=== PATIENT | female | born 1965 | race Caucasian/White ===

== ENCOUNTER 2023-04-23 09:46 | Outpatient (AMB) | payer MEDICARE, MEDICAID, SELFPAY ==
--- NOTE | 2023-04-23 10:05 | MHC.OFFVIS ---
Intake Vital Signs 04/23/23 10:06 Height 4 ft 10 in Weight 115 lb BMI 24.0 Intake Visit Reasons: OV-B/L shoulder MRI results Intake Note: Rae is a 57 year old right hand dominant female who presents today as a new patient to reestablish care with Dr. Bloom. The patient did undergo right shoulder arthroscopic surgery on 10/02/2022. She reports mild intermittent discomfort in her right shoulder. She denies any fevers or chills. Today she is most concerned with progressively worsening left shoulder pain. Her left shoulder pain has gotten worse over the last few years in spite of continued non operative treatments. She has tried Tylenol and anti-inflammatory medicines which gave her minimal relief. She has had multiple injections over the last few years which gave her only mild relief. The patient has done physical therapy for 12 weeks over the last 6 months which aggravated her pain. The patient states she has difficulty lifting her left hand above shoulder height. Allergies acetaminophen [Vicodin] Allergy (Unknown, Verified 11/07/19 00:00) rash cephalexin [Keflex] Allergy (Unknown, Verified 11/07/19 00:00) itching fentanyl Allergy (Unknown, Verified 11/07/19 00:00) rash hydrocodone [Vicodin] Allergy (Unknown, Verified 11/07/19 00:00) rash hydromorphone [Dilaudid] Allergy (Unknown, Verified 11/07/19 00:00) rash hydroxyzine [Vistaril] Allergy (Unknown, Verified 11/07/19 00:00) uremic pruritis oxycodone Allergy (Unknown, Verified 11/07/19 00:00) rash,itchy,hives bee stings Allergy (Unknown, Uncoded 11/07/19 00:00) rash/swelling Benadryl Allergy (Unknown, Uncoded 11/07/19 00:00) rash codeine Allergy (Unknown, Uncoded 11/07/19 00:00) rash,itchy,hive gluten Allergy (Unknown, Uncoded 11/07/19 00:00) Lactose Allergy (Unknown, Uncoded 11/07/19 00:00) GI latex Allergy (Unknown, Uncoded 11/07/19 00:00) rash,itchiness morphine Allergy (Unknown, Uncoded 11/07/19 00:00) itchy shellfish Allergy (Unknown, Uncoded 11/07/19 00:00) rash,itchiness ZyrTEC Allergy (Unknown, Uncoded 11/07/19 00:00) itchy Medication List - Last Reconciled 04/23/23 by Jimmie Bloom MD acetaminophen 1,000 mg PO Q8H PRN citalopram 40 mg PO DAILY citalopram 20 mg PO DAILY clonazepam 0.5 mg PO TID PRN epinephrine IM ibuprofen 600 mg PO Q8H PRN ondansetron HCl 4 mg PO DAILY PRN quetiapine 100 mg PO DAILY solifenacin 5 mg PO DAILY PFSH Medical History (Updated 04/23/23 @ 11:02 by Jimmie Bloom MD) ADHD Anxiety Bipolar depression Cervico-occipital neuralgia GERD (gastroesophageal reflux disease) High cholesterol Insomnia Pituitary adenoma PTSD (post-traumatic stress disorder) Surgical History (Updated 04/23/23 @ 10:30 by THEE Esquivel) History of shoulder surgery Hx of carpal tunnel repair Social History (Updated 04/23/23 @ 10:09 by THEE Esquivel) Patient Tobacco Use Status: Never used Tobacco Current occupational status: unemployed Physical Exam Vital Signs: BMI result Body Mass Index 24.0 Const Other: Well-nourished well-developed very friendly female awake alert and oriented x3 in no acute distress Extrem Other: Bilateral upper extremity examination shows good capillary refill, no skin lesions noted, normal sensation light touch Left shoulder examination shows decreased range of motion when compared to her right shoulder, 5/5 strength with supraspinatus testing, positive impingement signs, tenderness over her acromioclavicular joint, no instability Results Reviewed Results Reviewed: MRI of the patient's left shoulder show severe acromioclavicular joint narrowing, type 2 acromion, signal change within the supraspinatus tendon most likely due Assessment & Plan Assessment & Plan (1) Impingement syndrome of left shoulder: Code(s): M75.42 - Impingement syndrome of left shoulder Plan: Ms. Yarbrough presents with progressively worsening left shoulder pain and stiffness due to impingement syndrome, acromioclavicular joint arthritis and adhesive capsulitis. I had a lengthy discussion with the patient regarding the treatment options. At this point she has failed continued nonoperative treatments. The risks and benefits of left shoulder surgery were discussed at length with the patient. The patient wishes to proceed with surgery. Surgery will most likely involve left shoulder diagnostic arthroscopy with distal clavicle excision, acromioplasty, anterior capsule release with manipulation under anesthesia. The patient will contact my office to pick a surgery date. I will see her back 1 week prior to her surgery to answer any final questions that she might have. Feel free to call me at any time should questions regarding her orthopedic management arise. I spent 24 minutes in reviewing the patient's records and imaging studies, seeing the patient and documenting in the medical record. Coding Level of Care Code Est Pt Level 2 (65067) Diagnoses Impingement syndrome of left shoulder M75.42
[2023-04-23 10:06] VITALS: BMI 24.0
== END 2023-04-23 10:45 | disposition home or self-care (01) ==
PROVIDERS: PCP Pediatrics; Visit Provider Orthopaedic Surgery
DX: M75.42 Impingement syndrome of left shoulder (principal)
CPT/HCPCS: 99212

== ENCOUNTER → 2023-04-23 09:46 | Outpatient (BNVA) | payer MEDICARE, MEDICAID, SELFPAY | PROVIDERS: Visit Provider Orthopaedic Surgery | DX: M75.42 Impingement syndrome of left shoulder (principal) | CPT/HCPCS: 99212 ==

== ENCOUNTER 2023-08-12 08:23 | Outpatient (AMB) | payer MEDICARE, MEDICAID, SELFPAY ==
--- NOTE | 2023-08-12 08:27 | A.OFFVIS_ITS ---
Intake Vital Signs 08/12/23 08:29 Height 4 ft 10 in Weight 115 lb BMI 24.0 Intake Visit Reasons: Pre-Op LT SHLD 08/28/23DR Intake Note: Rae is a 57 year old right hand dominant female who presents today as a new patient to reestablish care with Dr. Bloom. The patient did undergo right shoulder arthroscopic surgery on 10/02/2022. She reports mild intermittent discomfort in her right shoulder. She denies any fevers or chills. Today she is most concerned with progressively worsening left shoulder pain. Her left shoulder pain has gotten worse over the last few years in spite of continued non operative treatments. She has tried Tylenol and anti-inflammatory medicines which gave her minimal relief. She has had multiple injections over the last few years which gave her only mild relief. The patient has done physical therapy for 12 weeks over the last 6 months which aggravated her pain. The patient states she has difficulty lifting her left hand above shoulder height. Pain management agreement reviewed and signed. Allergies acetaminophen [Vicodin] Allergy (Unknown, Verified 08/12/23 08:29) rash cephalexin [Keflex] Allergy (Unknown, Verified 08/12/23 08:) itching fentanyl Allergy (Unknown, Verified 08/12/23 08:) rash hydrocodone [Vicodin] Allergy (Unknown, Verified 08/12/23:) rash hydromorphone [Dilaudid] Allergy (Unknown, Verified 08/12/23 08:29) rash hydroxyzine [Vistaril] Allergy (Unknown, Verified 08/12/23 08:) uremic pruritis oxycodone Allergy (Unknown, Verified 08/12/23 08:) rash,itchy,hives bee stings Allergy (Unknown, Uncoded 08/12/23 08:29) rash/swelling Benadryl Allergy (Unknown, Uncoded 08/12/23 08:29) rash codeine Allergy (Unknown, Uncoded 08/12/23:) rash,itchy,hive gluten Allergy (Unknown, Uncoded 08/12/23 08:29) Unknown Lactose Allergy (Unknown, Uncoded 08/12/23 08:29) GI latex Allergy (Unknown, Uncoded 08/12/23 08:29) rash,itchiness morphine Allergy (Unknown, Uncoded 08/12/23 08:29) itchy shellfish Allergy (Unknown, Uncoded 08/12/23 08:29) rash,itchiness ZyrTEC Allergy (Unknown, Uncoded 08/12/23 08:29) itchy Medication List - Last Reconciled 08/12/23 by Jimmie Bloom MD citalopram 40 mg PO DAILY citalopram 20 mg PO DAILY clonazepam 0.5 mg PO TID PRN epinephrine IM ibuprofen 600 mg PO Q6H PRN ondansetron HCl 4 mg PO DAILY PRN quetiapine 100 mg PO DAILY solifenacin 5 mg PO DAILY PFSH Medical History (Updated 04/23/23 @ 11:02 by Jimmie Bloom MD) High cholesterol Cervico-occipital neuralgia Pituitary adenoma GERD (gastroesophageal reflux disease) PTSD (post-traumatic stress disorder) Anxiety ADHD Insomnia Bipolar depression Surgical History Hx of carpal tunnel repair History of shoulder surgery Social History Patient Tobacco Use Status: Never used Tobacco Current occupational status: unemployed Physical Exam Vital Signs: BMI result Body Mass Index 24.0 Const Other: Well-nourished well-developed very friendly female awake alert and oriented x3 in no acute distress Lungs - clear to auscultation bilaterally with symmetric expansion Cardiovascular exam - regular rate and rhythm Abdominal exam - soft nontender nondistended Extrem Other: Bilateral upper extremity examination shows good capillary refill, no skin lesions noted, normal sensation light touch The left shoulder examination shows decreased active and passive range of motion when compared to her right shoulder, 4+ out of 5 strength with supraspinatus testing, positive impingement signs, tenderness over her acromioclavicular joint, no instability Results Reviewed Results Reviewed: X-rays of the patient's left shoulder show severe acromioclavicular joint narrowing, a type 2 acromion, no acute bony abnormalities If the MRI of the patient's left shoulder shows severe acromioclavicular joint narrowing, a type 2 acromion, signal change within the supraspinatus tendon most likely due to adhesive capsulitis Assessment & Plan Assessment & Plan (1) Impingement syndrome of left shoulder: Code(s): M75.42 - Impingement syndrome of left shoulder Plan Ms. Yarbrough the presents with progressively worsening left shoulder pain and stiffness due to impingement syndrome, acromioclavicular joint arthritis and adhesive capsulitis. I had a lengthy discussion with the patient regarding the treatment options. At this point she has failed continued non operative treatments. The risks and benefits of left shoulder surgery were discussed at length with the patient. The patient wishes to proceed with surgery. Surgery will most likely involve left shoulder diagnostic arthroscopy with distal cl avicle excision, acromioplasty, capsular release and manipulation under anesthesia. The patient was given a prescription for ibuprofen at her preoperative appointment. She does not wish to take any narcotics following her surgery. I will see her back 2-3 weeks following her surgery for her 1st postoperative appointment. She will follow-up as instructed. Feel free to call me at any time should questions regarding her orthopedic management arise. I spent 22 minutes in reviewing the patient's records and imaging studies, seeing the patient and documenting in the medical record. Orders: Orders XR shoulder LT min 2V Today M75.42 - Impingement syndrome of left shoulder Medications: New ibuprofen 600 mg PO Q6H PRN 60 tabs 2RF pain Coding Level of Care Code Est Pt Level 2 (10535) Diagnoses Impingement syndrome of left shoulder M75.42
[2023-08-12 08:29] VITALS: BMI 24.0
== END 2023-08-12 08:47 | disposition home or self-care (01) ==
PROVIDERS: PCP Pediatrics; Visit Provider Orthopaedic Surgery
DX: M75.42 Impingement syndrome of left shoulder (principal)
CPT/HCPCS: 99212

== ENCOUNTER 2023-08-12 10:14 | Outpatient (REF) | payer MEDICARE, MEDICAID, SELFPAY ==
--- NOTE | ~2023-08-12 | XR_ITS ---
EXAMINATION: XR SHOULDER, LEFT CLINICAL INFORMATION: Impingement COMPARISON: None available. TECHNIQUE: Two views of the left shoulder. FINDINGS: No acute visible fracture or dislocation. Joint space alignment are maintained. Surgical clip left axilla. Visualized portions of the left chest are unremarkable. XR/XR shoulder LT min 2V IMPRESSION: No acute visible fracture or dislocation.
== END 2023-08-12 10:15 | disposition home or self-care (01) ==
LOC: HO.HOSX 10:14
PROVIDERS: Visit Provider Orthopaedic Surgery
DX: M75.42 Impingement syndrome of left shoulder (principal)
CPT/HCPCS: 73030; 99212

== ENCOUNTER 2023-08-21 06:00 | Day surgery (SDC) | payer MEDICARE, MEDICAID, SELFPAY ==
--- NOTE | 2023-08-20 08:44 | P.CONAN_ITS ---
Documented by User: Berkley Berry NP 08/20/23 08:44 HPI - Anesthesia Eval Consult details Narrative: 57yo F for Left Shoulder Arthroscopy, distal clavical excision of lysis *Multiple Allergies* PMFSH Active Problems Active Problems: All Active Problems (Updated 04/23/23 @ 11:02 by Jimmie Bloom MD) Impingement syndrome of left shoulder (Acute) Past Medical History Medical History (Updated 04/23/23 @ 11:02 by Jimmie Bloom MD) High cholesterol Cervico-occipital neuralgia Pituitary adenoma GERD (gastroesophageal reflux disease) PTSD (post-traumatic stress disorder) Anxiety ADHD Insomnia Bipolar depression Surgical History Surgical History Hx of carpal tunnel repair History of shoulder surgery Social History Social History Patient Tobacco Use Status: Never used Tobacco Second Hand Smoke Exposure: No Use of substances other than those prescribed or required for medical reasons: No Are you DNR?: No Advance Directives: No Advance Directives Information Provided: Yes Advance Directives on File: No Current occupational status: unemployed Meds Allergies Allergy/AdvReac Type Severity Reaction Status Date / Time acetaminophen [Vicodin] Allergy Unknown rash Verified 08/12/23 08:29 cephalexin [Keflex] Allergy Unknown itching Verified 08/12/23 08:29 fentanyl Allergy Unknown rash Verified 08/12/23 08:29 hydrocodone [Vicodin] Allergy Unknown rash Verified 08/12/23 08:29 hydromorphone [Dilaudid] Allergy Unknown rash Verified 08/12/23 08:29 hydroxyzine [Vistaril] Allergy Unknown uremic Verified 08/12/23 08:29 pruritis oxycodone Allergy Unknown rash,itchy, Verified 08/12/23 08:29 hives bee stings Allergy Unknown rash/swelli Uncoded 08/12/23 08:29 ng Benadryl Allergy Unknown rash Uncoded 08/12/23 08:29 codeine Allergy Unknown rash,itchy, Uncoded 08/12/23 08:29 hive gluten Allergy Unknown Unknown Uncoded 08/12/23 08:29 Lactose Allergy Unknown GI Uncoded 08/12/23 08:29 latex Allergy Unknown rash,itchin Uncoded 08/12/23 08:29 ess morphine Allergy Unknown itchy Uncoded 08/12/23 08:29 shellfish Allergy Unknown rash,itchin Uncoded 08/12/23 08:29 ess ZyrTEC Allergy Unknown itchy Uncoded 08/12/23 08:29 Active Medications: Current Medications Clindamycin Phosphate (Cleocin) 900 mg in 50 mls @ 50 mls/hr IV PREOP ONE Stop: 08/21/23 05:23 Home Medications Medication Instructions Recorded Confirmed Last Taken Type citalopram 20 mg tablet 20 mg PO DAILY 04/23/23 08/12/23 Unknown History citalopram 40 mg tablet 40 mg PO DAILY 04/23/23 08/12/23 Unknown History clonazepam 0.5 mg tablet 0.5 mg PO TID PRN 04/23/23 08/12/23 Unknown History epinephrine 0.3 mg/0.3 mL IM 04/23/23 08/12/23 Unknown History injection, auto-injector ondansetron HCl 4 mg tablet 4 mg PO DAILY PRN nausea 04/23/23 04/23/23 Unknown History quetiapine 100 mg tablet 100 mg PO DAILY 04/23/23 08/12/23 Unknown History solifenacin 5 mg tablet 5 mg PO DAILY 04/23/23 08/12/23 Unknown History Exam Exam Date and Time: August 20, 2023843 Assessment and Plan Assessment Anesthesia Assessment: Chart Reviewed Documented by User: Dillon Forbes MD 08/21/23 07:21 [facility] Past Medical History Medical History (Updated 04/23/23 @ 11:02 by Jimmie Bloom MD) High cholesterol Cervico-occipital neuralgia Pituitary adenoma GERD (gastroesophageal reflux disease) PTSD (post-traumatic stress disorder) Anxiety ADHD Insomnia Bipolar depression Family History Family history of problems with anesthesia: No Surgical History Surgical History Hx of carpal tunnel repair History of shoulder surgery History of Problems with Anesthesia: No Social History Social History Patient Tobacco Use Status: Never used Tobacco Second Hand Smoke Exposure: No Use of substances other than those prescribed or required for medical reasons: No Are you DNR?: No Advance Directives: No Advance Directives Information Provided: Yes Advance Directives on File: No Current occupational status: unemployed Meds Allergies Allergy/AdvReac Type Severity Reaction Status Date / Time acetaminophen [Vicodin] Allergy Unknown rash Verified 08/12/23 08:29 cephalexin [Keflex] Allergy Unknown itching Verified 08/12/23 08:29 fentanyl Allergy Unknown rash Verified 08/12/23 08:29 hydrocodone [Vicodin] Allergy Unknown rash Verified 08/12/23 08:29 hydromorphone [Dilaudid] Allergy Unknown rash Verified 08/12/23 08:29 hydroxyzine [Vistaril] Allergy Unknown uremic Verified 08/12/23 08:29 pruritis oxycodone Allergy Unknown rash,itchy, Verified 08/12/23 08:29 hives bee stings Allergy Unknown rash/swelli Uncoded 08/12/23 08:29 ng Benadryl Allergy Unknown rash Uncoded 08/12/23 08:29 codeine Allergy Unknown rash,itchy, Uncoded 08/12/23 08:29 hive gluten Allergy Unknown Unknown Uncoded 08/12/23 08:29 Lactose Allergy Unknown GI Uncoded 08/12/23 08:29 latex Allergy Unknown rash,itchin Uncoded 08/12/23 08:29 ess morphine Allergy Unknown itchy Uncoded 08/12/23 08:29 shellfish Allergy Unknown rash,itchin Uncoded 08/12/23 08:29 ess ZyrTEC Allergy Unknown itchy Uncoded 08/12/23 08:29 Home Medications Medication Instructions Recorded Confirmed Last Taken Type citalopram 20 mg tablet 20 mg PO DAILY 04/23/23 08/12/23 Unknown History citalopram 40 mg tablet 40 mg PO DAILY 04/23/23 08/12/23 Unknown History clonazepam 0.5 mg tablet 0.5 mg PO TID PRN 04/23/23 08/12/23 Unknown History epinephrine 0.3 mg/0.3 mL IM 04/23/23 08/12/23 Unknown History injection, auto-injector ondansetron HCl 4 mg tablet 4 mg PO DAILY PRN nausea 04/23/23 04/23/23 Unknown History quetiapine 100 mg tablet 100 mg PO DAILY 04/23/23 08/12/23 Unknown History solifenacin 5 mg tablet 5 mg PO DAILY 04/23/23 08/12/23 Unknown History Exam Airway Mallampati Class: II TM Dist: >3cm Neck ROM: Limited Heart: rrr Lungs: cta Assessment and Plan Assessment Anesthesia Assessment: Anesthesia Plan Discussed Final Anesthetic Review Family History of Problems with Anesthesia: No History of Problems with Anesthesia: No NPO: Yes ASA Class: III Final Preanesthetic Review: Meds/Allgs Chart Reviewed and Consent Obtaine d/Reviewed Patient Risk: Intermediate Procedure Risk: Intermediate Anesthetic Plan Anesthetic Plan: GA and Regional Block Disposition: Standard PACU
[2023-08-21] VITALS (8 sets, daily range): BP systolic 120–144; BP diastolic 69–91; PULSE 58–81; RESP 14–18; TEMP 35.9–36.1; O2SAT 96–100; BMI 24.0
--- NOTE | 2023-08-21 06:30 | PC.NURSE ---
patient eye lids red, irritated and itchy. patient asking for ointment to stop the itch. stated rash started a couple months ago and comes and goes. believes its a possible allergic reaction to something. MD aware.
[2023-08-21] MEDS: Lactated Ringers 1,000 ML 100 ML IVCONT (06:40)
--- NOTE | 2023-08-21 09:09 | PM.OP ---
Brief Operative Note Date of Service: 08/21/23 Pre-op diagnosis: Left shoulder impingement syndrome, left shoulder acromioclavicular joint arthritis, left shoulder adhesive capsulitis Post-op diagnosis: same Procedure: Left shoulder diagnostic arthroscopy with left shoulder arthroscopic distal clavicle excision, left shoulder arthroscopic acromioplasty, left shoulder arthroscopic anterior capsular release, left shoulder manipulation under anesthesia Implants: none Surgeon: Jimmie Bloom MD Anesthesia: GETA Was an Disintegrator Operator used for this Procedure?: No Estimated blood loss (mL): 10 Pathology: none sent Condition: stable Disposition: PACU
--- NOTE | 2023-08-21 09:10 | W.PM.OPN ---
Operative Note Operative Note Date of Service: 08/21/23 Narrative: After the patient was identified as Rae Yarbrough and their left shoulder was initialed by myself the patient was brought to the holding area where a left shoulder interscalene regional block was performed by the anesthesiologist in routine fashion. The patient was then brought to the operating room where general anesthesia was induced by the anesthesiologist in routine fashion. Because of the patient's allergy to cephalosporins she was given 900 mg of IV clindamycin preoperatively for infection prophylaxis. Examination under anesthesia of the patient's left shoulder showed decreased range of motion when compared to the right shoulder. The patient's left shoulder had forward flexion to 130 degrees compared to 170 degrees, external rotation to 30 degrees compared to 60 degrees, and internal rotation to 40 degrees compared to 50 degrees. The patient was gently positioned in the beach chair position with all bony prominences well padded. The patient's left shoulder region and upper extremity were prepped and draped in sterile fashion. A formal time-out was completed. A #11 scalpel blade was used to make a posterior portal 2 cm inferior and 1 cm medial to the posterolateral corner of the acromion. Blunt trocar technique was used to enter the glenohumeral joint in routine fashion. An anterior portal was made just lateral to the coracoid process after proper positioning was confirmed using a spinal needle. Diagnostic arthroscopy showed minimal degenerative changes of the glenoid and humeral head articular surfaces. There was no evidence of rotator cuff tearing. There was no evidence of injury to the biceps tendon or its insertion onto the glenoid. There was inflammation of the anterior joint capsule consistent with adhesive capsulitis. The ArthroCare Wand was then used to perform an anterior capsular release between the inferior border of the biceps tendon and the superior border of the subscapularis tendon. The arthroscope was then placed from the posterior portal into the subacromial space. A lateral portal was made 2 fingerbreadths lateral to the anterior lateral corner of the acromion. The ArthroCare Wand was used to ablate soft tissues along the undersurface of the acromion as well as to excise the coracoacromial ligament. There was a sharp spur along the undersurface of the acromion which was removed using the hooded bur. The arthroscope was then placed into the lateral portal and the acromioplasty was completed with the bur in the posterior portal using the posterior aspect of the acromion as a cutting block. The ArthroCare Wand was then brought in through the anterior portal and was used to ablate soft tissues along the acromioclavicular joint and distal clavicle. The posterior and superior ligamentous structures were left intact. A distal clavicle excision of 8 mm was performed using the hooded bur. Any remaining bursal tissue was removed using the arthroscopic shaver. The subacromial space was irrigated and then drained. All arthroscopic instruments were removed. A gentle manipulation under anesthesia was then performed. Full passive range of motion was easily obtained. The 3 portals were closed with 3-0 nylon interrupted suture. The subacromial space was injected with Marcaine. Dry sterile dressing was placed over all incisions. The patient's left upper extremity was placed into a sling. The patient was awoken and extubated in the operating room. The patient was transferred to the recovery room in stable condition.
== END 2023-08-21 11:00 | disposition home or self-care (01) ==
PROVIDERS: PCP Pediatrics; Visit Provider Orthopaedic Surgery
PROC: (CPT 29805; principal; 2023-08-21 07:30)
DX: M75.42 Impingement syndrome of left shoulder (principal); M19.012 Primary osteoarthritis, left shoulder; M75.02 Adhesive capsulitis of left shoulder; E78.00 Pure hypercholesterolemia, unspecified; D35.2 Benign neoplasm of pituitary gland; F43.10 Post-traumatic stress disorder, unspecified; M54.81 Occipital neuralgia; K21.9 Gastro-esophageal reflux disease without esophagitis; F31.9 Bipolar disorder, unspecified; Z79.1 Long term (current) use of non-steroidal anti-inflammatories (NSAID); Z79.899 Other long term (current) drug therapy; Z88.1 Allergy status to other antibiotic agents; Z88.8 Allergy status to other drugs, medicaments and biological substances; Z88.5 Allergy status to narcotic agent; Z98.890 Other specified postprocedural states
CPT/HCPCS: 29824; 29825; 29826; J0171; J0736; J1100; J2405; J2704; J2795

== ENCOUNTER → 2023-08-21 06:00 | Outpatient (BNV) | payer MEDICARE, MEDICAID, SELFPAY | PROVIDERS: PCP Pediatrics; Visit Provider Orthopaedic Surgery | DX: M75.42 Impingement syndrome of left shoulder (principal); M19.012 Primary osteoarthritis, left shoulder; M75.02 Adhesive capsulitis of left shoulder | CPT/HCPCS: 29824; 29825; 29826 ==

== ENCOUNTER 2023-09-08 12:29 | Outpatient (AMB) | payer MEDICARE, MEDICAID, SELFPAY ==
--- NOTE | 2023-09-08 12:32 | A.OFFVIS_ITS ---
Intake Intake Visit Reasons: PO LT SHLD 08/28/23DR Intake Note: Rae is a 57 year old female who presents today for a post op appointment s/p left shoulder 08/28/23 . Patient reports that she is having significant pain. She has discontinued use of her sling after 3 days. Allergies acetaminophen [Vicodin] Allergy (Unknown, Verified 08/12/23 08:29) rash cephalexin [Keflex] Allergy (Unknown, Verified 08/12/23 08:29) itching fentanyl Allergy (Unknown, Verified 08/12/23 08:29) rash hydrocodone [Vicodin] Allergy (Unknown, Verified 08/12/23 08:29) rash hydromorphone [Dilaudid] Allergy (Unknown, Verified 08/12/23 08:29) rash hydroxyzine [Vistaril] Allergy (Unknown, Verified 08/12/23 08:29) uremic pruritis oxycodone Allergy (Unknown, Verified 08/12/23 08:29) rash,itchy,hives bee stings Allergy (Unknown, Uncoded 08/12/23 08:29) rash/swelling Benadryl Allergy (Unknown, Uncoded 08/12/23 08:29) rash codeine Allergy (Unknown, Uncoded 08/12/23 08:29) rash,itchy,hive gluten Allergy (Unknown, Uncoded 08/12/23 08:29) Unknown Lactose Allergy (Unknown, Uncoded 08/12/23 08:29) GI latex Allergy (Unknown, Uncoded 08/12/23 08:29) rash,itchiness morphine Allergy (Unknown, Uncoded 08/12/23 08:29) itchy shellfish Allergy (Unknown, Uncoded 08/12/23 08:29) rash,itchiness ZyrTEC Allergy (Unknown, Uncoded 08/12/23 08:29) itchy HPI PO LT SHLD 08/28/23DR HPI Details 57-year-old female who presents in the o ffice today 11 days status post left shoulder diagnostic arthroscopy distal clavicle excision, acromioplasty, anterior capsular release, manipulation under anesthesia, which was performed on 08/21/[address] Bloom. The patient reports she is having significant pain. She also reports she discontinued the sling after 3 days. FORMERLY [facility] Medical History High cholesterol Cervico-occipital neuralgia Pituitary adenoma GERD (gastroesophageal reflux disease) PTSD (post-traumatic stress disorder) Anxiety ADHD Insomnia Bipolar depression Surgical History Hx of carpal tunnel repair History of shoulder surgery Social History Alcohol intake: never Patient Tobacco Use Status: Never used Tobacco Smoked in Last 30 Days: No Second Hand Smoke Exposure: No Use of substances other than those prescribed or required for medical reasons: No Advance Directives: No Advance Directives Information Provided: No Current occupational status: unemployed Review of Systems Const All systems reviewed & are unremarkable except as noted in HPI and below Physical Exam Const General: cooperative, healthy appearing and no acute distress Resp Effort & Inspection: normal respiratory effort and able to speak in complete sentences Cardio Rate: regular rate Peripheral pulses: Peripheral pulses 2+ throughout GI Palpation (GI): Soft to palpation Skin Lesions: no lesions Rashes: no rashes Extrem Other: Left shoulder: Incision site is clean, dry, and intact. No surrounding erythema or drainage. No signs of infection. Forward flexion and abduction to 90 degrees. Able to reach back pocket. NVI. Assessment & Plan Assessment & Plan (1) History of arthroscopy of left shoulder: Comment: Left shoulder diagnostic arthroscopy distal clavicle excision, acromioplasty, anterior capsular release, manipulation under anesthesia 08/21/2023 Code(s): Z98.890 - Other specified postprocedural states (2) Adhesive capsulitis of left shoulder: Code(s): M75.02 - Adhesive capsulitis of left shoulder Plan Ms. Yarbrough is a 57-year-old female who presents in the office today 11 days status post left shoulder diagnostic arthroscopy distal clavicle excision, acromioplasty, anterior capsular release, manipulation under anesthesia, which was performed on 08/21/[address] Bloom. The patient reports she is having significant pain. She also reports she discontinued the sling after 3 days. The patient would like to attend outpatient physical therapy closer to her house. Therefore, a prescription have been provided to the patient while in the office today with instructions for her to begin as soon as possible. The patient reports being seen by Dr. Bloom prior to surgery about her right shoulder pain and stating she was told she could have a cortisone injection in the right shoulder at today?s appointment. I have agreed with this plan. The patient was offered a cortisone injection in the right shoulder with 80 mg of DepoMedrol. The patient was explained the risk, benefits, and alternatives to receiving this injection. After receiving consent for the injection, the patient had the procedure done while in office today. The patient tolerated the procedure well with no complications. Follow up will be in 4 weeks, or sooner if needed. OF NOTE: After the injection was administered, the patient made her way to the waiting room. At this time she began to feel lightheaded and dizzy. She was instructed to have a seat and wait for her symptoms to improve. Unfortunately the patient?s symptoms did not improve but worsened. She was assisted to an exam room and placed in a supine position on the exam table with her knees elevated. The patient began to experience extreme drowsiness. Therefore, EMS was called. Upon EMS presentation the patient had vital signs drawn, which was within normal range. She had an EKG which was within normal range. She was transported from our office via EMS to the emergency room for further evaluation and treatment. Orders: Orders PT Evaluation and Treatment 09/08/23 M75.02 - Adhesive capsulitis of left shoulder Medications: New lidocaine 5% leave on most painful area for up to 12 hrs 1 patch topical Q24H 15 ea 0RF Patient Instructions: Scribed for Cindy Lantigua PA-C by Sun Patel medical receptionist medical assistant, on 09/08/2023 at 12:40 pm, EST. Coding Level of Care Code Global (58511) Diagnoses History of arthroscopy of left shoulder Z98.890 Adhesive capsulitis of left shoulder M75.02
== END 2023-09-08 13:46 | disposition home or self-care (01) ==
PROVIDERS: PCP Pediatrics; Visit Provider Physician Assistant
DX: Z98.890 Other specified postprocedural states (principal); M75.02 Adhesive capsulitis of left shoulder
CPT/HCPCS: 99024

== ENCOUNTER 2023-09-08 13:51 | Emergency (ER) | payer MEDICARE, MEDICAID, SELFPAY ==
[2023-09-08] VITALS (10 sets, daily range): BP systolic 119–147; BP diastolic 63–78; PULSE 56–80; RESP 16–17; TEMP 36.6–36.8; O2SAT 95–98; BMI 22.7
--- NOTE | 2023-09-08 14:22 | ECG_ITS ---
Test Reason : CHEST PAIN Blood Pressure : / mmHG Vent. Rate : 055 BPM Atrial Rate : 055 BPM P-R Int : 128 ms QRS Dur : 074 ms QT Int : 432 ms P-R-T Axes : 000 166 153 degrees QTc Int : 413 ms Sinus bradycardia Possible limb lead reversal Right axis deviation Low voltage QRS Abnormal ECG No previous ECGs available advise repeat study Referred By: Donis Velazquez Electronically Signed By:ALEXUS TYSON MD
--- NOTE | 2023-09-08 14:24 | ED_ITS ---
HPI - General Adult General Chief complaint: General Medical Stated complaint: AMS from PCP Time Seen by Provider: 09/08/23 14:24 Source: patient and EMS Mode of arrival: EMS Limitations: no limitations History of Present Illness HPI narrative: Weakness and possible syncope in the ortho office. Patient states she was not feeling well yesterday. She states she went to the office to get her sutures out for shoulder surgery and had a steroid shot into her other shoulder. She doesn't think she passed out but EMS states she did. Onset (ago): hour(s) Related Data Home Medications Medication Instructions Recorded Confirmed citalopram 20 mg tablet 20 mg PO DAILY 04/23/23 08/12/23 citalopram 40 mg tablet 40 mg PO DAILY 04/23/23 08/12/23 clonazepam 0.5 mg tablet 0.5 mg PO TID PRN 04/23/23 08/12/23 epinephrine 0.3 mg/0.3 mL IM 04/23/23 08/12/23 injection, auto-injector ondansetron HCl 4 mg tablet 4 mg PO DAILY PRN nausea 04/23/23 04/23/23 quetiapine 100 mg tablet 100 mg PO DAILY 04/23/23 08/12/23 solifenacin 5 mg tablet 5 mg PO DAILY 04/23/23 08/12/23 Previous Rx's Medication Instructions Recorded ibuprofen 600 mg tablet 600 mg PO Q6H PRN pain #60 tabs 08/12/23 lidocaine 5 % topical patch 1 patch topical Q24H #15 ea 09/08/23 Allergies Allergy/AdvReac Type Severity Reaction Status Date / Time acetaminophen [Vicodin] Allergy Unknown rash Verified 08/12/23 08:29 cephalexin [Keflex] Allergy Unknown itching Verified 08/12/23 08:29 fentanyl Allergy Unknown rash Verified 08/12/23 08:29 hydrocodone [Vicodin] Allergy Unknown rash Verified 08/12/23 08:29 hydromorphone [Dilaudid] Allergy Unknown rash Verified 08/12/23 08:29 hydroxyzine [Vistaril] Allergy Unknown uremic Verified 08/12/23 08:29 pruritis oxycodone Allergy Unknown rash,itchy, Verified 08/12/23 08:29 hives bee stings Allergy Unknown rash/swelli Uncoded 08/12/23 08:29 ng Benadryl Allergy Unknown rash Uncoded 08/12/23 08:29 codeine Allergy Unknown rash,itchy, Uncoded 08/12/23 08:29 hive gluten Allergy Unknown Unknown Uncoded 08/12/23 08:29 Lactose Allergy Unknown GI Uncoded 08/12/23 08:29 latex Allergy Unknown rash,itchin Uncoded 08/12/23 08:29 ess morphine Allergy Unknown itchy Uncoded 08/12/23 08:29 shellfish Allergy Unknown rash,itchin Uncoded 08/12/23 08:29 ess ZyrTEC Allergy Unknown itchy Uncoded 08/12/23 08:29 Review of Systems 2 Review of Systems: Yes all other systems are reviewed and are negative Neurologic: Denies Sensory deficit (Neuro) PMFSH Past Medical History Medical History High cholesterol Cervico-occipital neuralgia Pituitary adenoma GERD (gastroesophageal reflux disease) PTSD (post-traumatic stress disorder) Anxiety ADHD Insomnia Bipolar depression Surgical History Hx of carpal tunnel repair History of shoulder surgery Social History Social History Patient Tobacco Use Status: Never used Tobacco Second Hand Smoke Exposure: No Advance Directives: No Advance Directives Information Provided: No Current occupational status: unemployed Physical Exam ED Vital Signs: Vital Signs - 24 hr 09/08/23 14:10 Temperature 98 F Pulse Rate 67 Respiratory Rate 17 Blood Pressure 140/72 H Pulse Oximetry 98 Oxygen Delivery Method Room Air BMI result Body Mass Index 22.7 Const Other: female appearing lethargic Nutritional Appearance: average body habitus Orientation/consciousness: oriented to person and patient oriented x3 Limitations: no limitations HENMT Head: Yes normal to inspection Ears: external ears normal General nose exam: Normal external nose present Mouth: Normal oral and palatal mucosa present and oropharynx normal Throat: Yes posterior oropharynx normal Eyes General: appearance normal, both eyes and all related structures Neck Neck: Yes normal visual inspection Chest Chest palpation & inspection: normal inspection of the chest Resp Auscultation: clear to auscultation bilaterally Cardio Jugular venous distension: no JVD Rate: regular rate Rhythm: regular rhythm Heart sounds: S1 normal heart sound present and S2 normal heart sound present GI Inspection: Yes normal to inspection Palpation (GI): Soft to palpation, nontender and No hepatosplenomegaly present Auscultation: normal bowel sounds General: Yes no CVA tenderness Back/Spine/Pelvis Back: no CVA tenderness Skin General skin exam: no rashes or lesions noted Neuro General: oriented to person and patient oriented x3 Cranial nerves: Yes CN's II-XII intact bilaterally Motor exam (neuro): 5/5 motor strength present throughout Sensory Exam: No Sensory deficit (Neuro) Extrem General: Yes normal to inspection Psych Other: lethargic Course Reevaluation(s) Reevaluation #1: Physician observation: started now. Still awaiting UA and utox, and to see if patient wakes up more during observation. Impression is the patient is over medicated on her benzodiazepines. Time: 16:10 Medical Decision Making Differential Diagnosis Differential Diagnoses: The differential diagnosis associated with the presentation includes (over medicated, overdose, allergic reaction were all considered) Admission/Observation Consideration of admission/observation: Escalation of care including admission/observation considered (upon arrival patient was considered for admission) Lab Data 09/08/23 14:57 09/08/23 14:57 Labs: Lab Results 09/08/23 Range/Units 14:57 WBC 4.0 L (4.8-10.8) X10*3/uL RBC 4.63 (4.20-5.50) X10*6/uL Hgb 14.2 (12.0-16.0) g/dl Hct 43.5 (37.0-47.0) % MCV 94.0 (80.0-98.0) fL MCH 30.7 (27.0-33.0) pg MCHC 32.6 (31.0-35.0) g/dl RDW 12.3 (11.0-16.0) % Plt Count 234 (160-400) X10*3/uL MPV 9.5 (9.4-12.3) fL Immature Gran % (Auto) 0.2 (0.0-0.4) % Neut % (Auto) 50.4 (45-73) % Lymph % (Auto) 37.3 (20-40) % [place] % (Auto) 9.7 (2-11) % Eos % (Auto) 1.7 (0-4) % Baso % (Auto) 0.7 (0-2) % Lymph # (Auto) 1.5 (1.2-4.9) X10*3/uL [place] # (Auto) 0.4 (0.1-1.2) X10*3/uL Eos # (Auto) 0.1 (0.0-0.4) X10*3/uL Baso # (Auto) 0.0 (0.0-0.2) X10*3/uL Abs Immat Gran (auto) 0.01 (0.00-0.03) X10*3/uL Absolute Neuts (auto) 2.0 (2.0-8.3) x10*3/uL Absolute Nucleated RBC 0.000 (0.0-0.012) X10*3/uL Nucleated RBC % (auto) 0.0 (0.0-0.2) /100WBC Sodium 139 (135-145) mmol/L Potassium 4.6 (3.3-5.1) mmol/L Chloride 107 (96-108) mmol/L Carbon Dioxide 24 (22-29) mmol/L Anion Gap 13 (12-20) BUN 14 (9-16) mg/dL Creatinine 0.84 (0.5-1.4) mg/dL Estim Creat Clear Calc 50.3 Estimated GFR > 60 Random Glucose 96 (60-115) mg/dL Calcium 9.2 (8.4-10.2) mg/dL Total Bilirubin 0.3 (0.0-1.0) mg/dL AST 22 (5-31) U/L ALT 19 (0-31) U/L Alkaline Phosphatase 119 H (39-117) U/L Total Protein 7.6 (6.5-8.0) g/dL Albumin 4.2 (3.5-5.0) g/dL Independent Interpretation I performed an independent interpretation of an: EKG (sinus 55, no st or twave changes) Independent Historian Clinical information obtained from an independent historian. History obtained from or confirmed by: EMS Tests considered The following testing was considered but not selected: Head Ct considered but patient non focal seems like lethargy more toxic metabolic and likely medication OD or side effect Chronic Conditions Patient?s care impacted by: Other (psychiatric) Discharge Plan Discharge Clinical Impression: Lethargy, Medication side effects, Overdose Patient Disposition: Still a Patient Prescriptions: No Action citalopram 20 mg tablet 20 mg PO DAILY citalopram 40 mg tablet 40 mg PO DAILY clonazepam 0.5 mg tablet 0.5 mg PO TID PRN quetiapine 100 mg tablet 100 mg PO DAILY epinephrine 0.3 mg/0.3 mL auto-injector IM ondansetron HCl 4 mg tablet 4 mg PO DAILY PRN (Reason: nausea) solifenacin 5 mg tablet 5 mg PO DAILY lidocaine 5 % adhesive patch,medicated 1 patch topical Q24H Qty: 15 0RF Rx Instructions: leave on most painful area for up to 12 hrs ibuprofen 600 mg tablet 600 mg PO Q6H PRN (Reason: pain) Qty: 60 2RF
[2023-09-08 15:01] LABS: MANUAL DIFF FLAG NO
[2023-09-08 15:02] LABS: Basophils Percent Auto 0.7 % (0-2); Eosinophils Absolute Auto 0.1 X10*3/uL (0.0-0.4); Eosinophils Percent Auto 1.7 % (0-4); Hematocrit 43.5 % (37.0-47.0); Hemoglobin 14.2 g/dl (12.0-16.0); Imm Gran Abs Auto 0.01 X10*3/uL (0.00-0.03); Imm Gran Pct Auto 0.2 % (0.0-0.4); Lymphocytes Absolute Auto 1.5 X10*3/uL (1.2-4.9); Lymphocytes Percent Auto 37.3 % (20-40); Mean Corpuscular HGB Conc 32.6 g/dl (31.0-35.0); Mean Corpuscular Hemoglobin 30.7 pg (27.0-33.0); Mean Platelet Volume 9.5 fL (9.4-12.3); Monocytes Absolute Auto 0.4 X10*3/uL (0.1-1.2); Monocytes Percent Auto 9.7 % (2-11); Neutrophils Percent Auto 50.4 % (45-73); Platelet Count 234 X10*3/uL (160-400); Red Blood Count 4.63 X10*6/uL (4.20-5.50); Red Cell Distribution Width 12.3 % (11.0-16.0)
[2023-09-08 15:17] LABS: Alanine Aminotransferase 19 U/L (0-31); Albumin Level 4.2 g/dL (3.5-5.0); Alkaline Phosphatase 119 U/L (39-117); Anion Gap 13 (12-20); Aspartate Amino Transferase 22 U/L (5-31); Bilirubin Total 0.3 mg/dL (0.0-1.0); Blood Urea Nitrogen 14 mg/dL (9-16); Calcium 9.2 mg/dL (8.4-10.2); Carbon Dioxide 24 mmol/L (22-29); Chloride 107 mmol/L (96-108); Creatinine Clr Calc Pharmacy 50.3; Estimated Glomerular Filt Rate > 60; Glucose Random 96 mg/dL (60-115); Potassium 4.6 mmol/L (3.3-5.1); Sodium 139 mmol/L (135-145); Total Protein 7.6 g/dL (6.5-8.0)
--- NOTE | 2023-09-08 16:59 | MHC.EDTECH ---
Patient urine sample collected and sent to lab ,vitals taken .
[2023-09-08 17:06] LABS: Appearance Urine Clear; Color Urine Yellow; Glucose Urine UA Negative (Negative); Leukocyte Esterase Urine Negative (Negative); Nitrite Urine Negative (Negative); PH 6.5 (5.0-9.0); Urine Blood Negative (Negative); Urine Ketones Negative (Negative); Urine Protein Negative (Neg-Trace)
[2023-09-08 17:10] LABS: Amphetamine Screen Urine Not Detected (Not Detect); Barbiturates, Urine Not Detected (Not Detect); Benzodiazepines Screen Urine Not Detected (Not Detect); Cannabinoid Screen Urine Not Detected (Not Detect); Cocaine Screen Urine Not Detected (Not Detect); Fentanyl, urine Not Detected (Not Detect); Opiate Screen Urine Not Detected (Not Detect); Phencyclidine Screen Urine Not Detected (Not Detect)
[2023-09-08 17:28] LABS: Troponin-I High Sensitivity < 2.7 ng/L (<3.5-17.0)
--- NOTE | 2023-09-08 18:09 | MHC.EDTECH ---
PATIENT ORTHOSTATICS VITALS TAKEN .
[2023-09-08] MEDS: 0.9 % Sodium Chloride 1,000 ML 999 ML IVCONT (18:51)
--- NOTE | 2023-09-08 20:52 | MHC.EDTECH ---
PATIENT REPEATED ORTHOSTATICS VITALS TAKEN .
== END 2023-09-08 21:23 | disposition home or self-care (01) ==
PROVIDERS: Emergency Medicine; Emergency Provider Emergency Medicine; PCP Pediatrics
DX: R53.83 Other fatigue (principal); T42.4X1A Poisoning by benzodiazepines, accidental (unintentional), initial encounter; Y92.531 Health care provider office as the place of occurrence of the external cause; E78.5 Hyperlipidemia, unspecified; F90.9 Attention-deficit hyperactivity disorder, unspecified type; Z79.899 Other long term (current) drug therapy
CPT/HCPCS: 36415; 51701; 80053; 80307; 81003; 84484; 85025; 93005; 96360; 96361; 99284; 99285; J1040

== ENCOUNTER 2023-10-08 10:23 | Outpatient (REF) | payer MEDICARE, MEDICAID, SELFPAY | END 2023-10-08 10:24 | disposition home or self-care (01) | LOC: HO.HOSX 10:23 | PROVIDERS: PCP Pediatrics; Visit Provider Orthopaedic Surgery | DX: M25.512 Pain in left shoulder (principal); Z47.89 Encounter for other orthopedic aftercare; Z98.890 Other specified postprocedural states | CPT/HCPCS: 73030; 99212 ==

== ENCOUNTER 2023-10-08 10:23 | Outpatient (AMB) | payer MEDICARE, MEDICAID, SELFPAY ==
--- NOTE | 2023-10-08 10:25 | MHC.OFFVIS ---
Intake Intake Visit Reasons: PO LT SHLD 08/28/23DR Intake Note: Rae is a 58 year old female who presents today for a post op appointment s/p left shoulder 08/28/23 . Patient reports she fell on her left shoulder a couple weeks ago and it feels sore. She also reports intermittent spasms on the left side of her neck. She denies any numbness or tingling in either of her upper extremities. She continues with her physical therapy exercises. She was taking ibuprofen but it seemed to make her eyes swell. Allergies acetaminophen [Vicodin] Allergy (Unknown, Verified 10/08/23 10:26) rash cephalexin [Keflex] Allergy (Unknown, Verified 10/08/23 10:26) itching fentanyl Allergy (Unknown, Verified 10/08/23 10:26) rash hydrocodone [Vicodin] Allergy (Unknown, Verified 10/08/23 10:26) rash hydromorphone [Dilaudid] Allergy (Unknown, Verified 10/08/23 10:26) rash hydroxyzine [Vistaril] Allergy (Unknown, Verified 10/08/23 10:26) uremic pruritis oxycodone Allergy (Unknown, Verified 10/08/23 10:26) rash,itchy,hives bee stings Allergy (Unknown, Uncoded 08/12/23 08:29) rash/swelling Benadryl Allergy (Unknown, Uncoded 08/12/23 08:29) rash codeine Allergy (Unknown, Uncoded 08/12/23 08:29) rash,itchy,hive gluten Allergy (Unknown, Uncoded 08/12/23 08:29) Unknown Lactose Allergy (Unknown, Uncoded 08/12/23 08:29) GI latex Allergy (Unknown, Uncoded 08/12/23 08:29) rash,itchiness morphine Allergy (Unknown, Uncoded 08/12/23 08:29) itchy shellfish Allergy (Unknown, Uncoded 08/12/23 08:29) rash,itchiness ZyrTEC Allergy (Unknown, Uncoded 08/12/23 08:29) itchy Medication List - Last Reconciled 10/08/23 by Jimmie Bloom MD citalopram 40 mg PO DAILY citalopram 20 mg PO DAILY clonazepam 0.5 mg PO TID PRN epinephrine IM ibuprofen 600 mg PO Q6H PRN lidocaine 5% 1 patch topical Q24H ondansetron HCl 4 mg PO DAILY PRN quetiapine 100 mg PO DAILY solifenacin 5 mg PO DAILY tizanidine 2 mg PO Q12H PRN PFSH Medical History High cholesterol Cervico-occipital neuralgia Pituitary adenoma GERD (gastroesophageal reflux disease) PTSD (post-traumatic stress disorder) Anxiety ADHD Insomnia Bipolar depression Surgical History Hx of carpal tunnel repair History of shoulder surgery Social History Alcohol intake: never Patient Tobacco Use Status: Never used Tobacco Second Hand Smoke Exposure: No Current occupational status: unemployed Physical Exam Extrem Other: Physical examination of the patient's left shoulder shows that the surgical incisions are well healed, no erythema, almost full range of motion when compared to her right shoulder with mild to moderate discomfort, no instability Results Reviewed Results Reviewed: X-rays of the patient's left shoulder show bony changes consistent with distal clavicle excision and acromioplasty, no acute bony abnormalities Assessment & Plan Assessment & Plan (1) Left shoulder pain: Code(s): M25.512 - Pain in left shoulder Plan: Ms. Yarbrough continues to do fairly well after undergoing left shoulder arthroscopic surgery on 08/21/2023 in spite of her recent fall. She will continue with her physical therapy. I did give her a prescription for tizanidine to help with muscle spasms in her neck. She will contact me prior to her follow-up appointment in 2 months should any questions or concerns arise. Feel free to call me at any time should questions regarding her orthopedic management arise. Orders: Orders XR shoulder LT min 2V Today M25.512 - Pain in left shoulder Medications: New tizanidine 2 mg PO Q12H PRN 20 tabs 1RF muscle spasticity Coding Level of Care Code Global (26692) Diagnoses Left shoulder pain M25.512
== END 2023-10-08 11:14 | disposition home or self-care (01) ==
PROVIDERS: PCP Pediatrics; Visit Provider Orthopaedic Surgery
DX: M25.512 Pain in left shoulder (principal)
CPT/HCPCS: 99024

== ENCOUNTER 2023-12-09 11:10 | Outpatient (AMB) | payer MEDICARE, MEDICAID, SELFPAY ==
--- NOTE | 2023-12-09 11:14 | MHC.OFFVIS ---
Intake Intake Visit Reasons: OV- LT SHLD 08/28/23DR Intake Note: Rae is a 58 year old female who presents today for a post op appointment s/p left shoulder 08/28/23 . Patient reports she is sore and has been doing her home exercises but is still having some discomfort. She denies any fevers or chills. She does not take any medicines for her discomfort. Allergies ibuprofen Allergy (Intermediate, Verified 12/09/23 11:24) rash, itchey acetaminophen [Vicodin] Allergy (Unknown, Verified 12/09/23 11:22) rash cephalexin [Keflex] Allergy (Unknown, Verified 12/09/23 11:22) itching fentanyl Allergy (Unknown, Verified 12/09/23 11:22) rash hydrocodone [Vicodin] Allergy (Unknown, Verified 12/09/23 11:22) rash hydromorphone [Dilaudid] Allergy (Unknown, Verified 12/09/23 11:22) rash hydroxyzine [Vistaril] Allergy (Unknown, Verified 12/09/23 11:22) uremic pruritis oxycodone Allergy (Unknown, Verified 12/09/23 11:22) rash,itchy,hives bee stings Allergy (Unknown, Uncoded 08/12/23 08:29) rash/swelling Benadryl Allergy (Unknown, Uncoded 08/12/23 08:29) rash codeine Allergy (Unknown, Uncoded 08/12/23 08:29) rash,itchy,hive gluten Allergy (Unknown, Uncoded 08/12/23 08:29) Unknown Lactose Allergy (Unknown, Uncoded 08/12/23 08:29) GI latex Allergy (Unknown, Uncoded 08/12/23 08:29) rash,itchiness morphine Allergy (Unknown, Uncoded 08/12/23 08:29) itchy shellfish Allergy (Unknown, Uncoded 08/12/23 08:29) rash,itchiness ZyrTEC Allergy (Unknown, Uncoded 08/12/23 08:29) itchy Medication List - Last Reconciled 12/09/23 by Jimmie Bloom MD citalopram 40 mg PO DAILY citalopram 20 mg PO DAILY clonazepam 0.5 mg PO TID PRN epinephrine IM ondansetron HCl 4 mg PO DAILY PRN quetiapine 100 mg PO DAILY solifenacin 5 mg PO DAILY tizanidine 2 mg PO Q12H PRN PFSH Medical History High cholesterol Cervico-occipital neuralgia Pituitary adenoma GERD (gastroesophageal reflux disease) PTSD (post-traumatic stress disorder) Anxiety ADHD Insomnia Bipolar depression Surgical History Hx of carpal tunnel repair History of shoulder surgery Social History Alcohol intake: never Patient Tobacco Use Status: Never used Tobacco Second Hand Smoke Exposure: No Current occupational status: unemployed Physical Exam Const Other: Well-nourished well-developed very friendly female awake alert and oriented x3 in no acute distress Extrem Other: Bilateral upper extremity examination shows good capillary refill, no skin lesions noted, normal sensation light touch Left shoulder examination shows full range of motion when compared to her right shoulder, 5/5 strength with supraspinatus testing, mild discomfort with resisted forward flexion Assessment & Plan Assessment & Plan (1) Left shoulder pain: Code(s): M25.512 - Pain in left shoulder Plan Ms. Yarbrough continues to do well after undergoing left shoulder arthroscopic surgery on 08/21/2023. She will continue with her home stretching program to prevent stiffness. The do's and don'ts of lifting were discussed at length with the patient. 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 Thus, I will have her evaluated by Dr. Chun. I will see her back in 2 months' time for repeat clinical examination. Feel free to call me at any time should questions regarding her orthopedic management arise. I spent 19 minutes in reviewing the patient's records and imaging studies, seeing the patient and documenting in the medical record. Coding Level of Care Code Est Pt Level 2 (13979) Diagnoses Left shoulder pain M25.512
== END 2023-12-09 11:55 | disposition home or self-care (01) ==
PROVIDERS: PCP Pediatrics; Visit Provider Orthopaedic Surgery
DX: M25.512 Pain in left shoulder (principal)
CPT/HCPCS: 99212

== ENCOUNTER → 2023-12-09 11:10 | Outpatient (BNVA) | payer MEDICARE, MEDICAID, SELFPAY | PROVIDERS: PCP Pediatrics; Visit Provider Orthopaedic Surgery | DX: M25.512 Pain in left shoulder (principal) | CPT/HCPCS: 99212 ==

== ENCOUNTER 2024-01-12 14:22 | Outpatient (AMB) | payer MEDICARE, MEDICAID, SELFPAY ==
--- NOTE | 2024-01-12 14:26 | MHC.OFFVIS ---
Intake Vital Signs 01/12/24 14:28 Height 4 ft 11 in Weight 112 lb BMI 22.6 Intake Visit Reasons: newprob- B/L little fingers pain and sideways Intake Note: Dory 58 yr old right hand dominant female presents today for a new problem visit for bilateral pinky pain that radiates down her ulnar aspect of hand. States both are as bad. States she has has deformity in her pinky since . Pain when moving her pinky all the time. Denies therapy. Hx of left shoulder scope 08/28/[address] Bloom & [facility]. Allergies ibuprofen Allergy (Intermediate, Verified 01/12/24 14:30) rash, itchey acetaminophen [Vicodin] Allergy (Unknown, Verified 01/12/24 14:30) rash cephalexin [Keflex] Allergy (Unknown, Verified 01/12/24 14:30) itching fentanyl Allergy (Unknown, Verified 01/12/24 14:30) rash hydrocodone [Vicodin] Allergy (Unknown, Verified 01/12/24 14:30) rash hydromorphone [Dilaudid] Allergy (Unknown, Verified 01/12/24 14:30) rash hydroxyzine [Vistaril] Allergy (Unknown, Verified 01/12/24 14:30) uremic pruritis oxycodone Allergy (Unknown, Verified 01/12/24 14:30) rash,itchy,hives bee stings Allergy (Unknown, Uncoded 01/12/24 14:30) rash/swelling Benadryl Allergy (Unknown, Uncoded 01/12/24 14:30) rash codeine Allergy (Unknown, Uncoded 01/12/24 14:30) rash,itchy,hive gluten Allergy (Unknown, Uncoded 01/12/24 14:30) Unknown Lactose Allergy (Unknown, Uncoded 01/12/24 14:30) GI latex Allergy (Unknown, Uncoded 01/12/24 14:30) rash,itchiness morphine Allergy (Unknown, Uncoded 01/12/24 14:30) itchy shellfish Allergy (Unknown, Uncoded 01/12/24 14:30) rash,itchiness ZyrTEC Allergy (Unknown, Uncoded 01/12/24 14:30) itchy HPI newprob- B/L little fingers pain and sideways HPI Details Dory is a 58 year old right hand dominant woman who presents with complaints of bilateral small finger pain and deformity . She reports having a deformity of her small fingers since . She complains of her small fingertips being bent inwards somewhat, along with pain that radiates from her small fingers into the ulnar aspect of her hands. She says the pain is present at all times when she moves her small fingers. She feels this pain & deformity cause issues with gripping activities She also complains of bilateral thumb pain, worse with bending activities. She reports some occasional numbness in her fingers. She says she has a hx of bilateral carpal tunnel releases in ~2013, followed by a second surgery bilaterally done on her elbows. She says this was another carpal tunnel release. She says her sensation improved following her surgeries but she still does have occasional numbness. She denies any smoking or other drug use. She reports having multiple drug allergies, and says that one time she received a steroid injection into her back, which resulted in a trip to the ER the same day. She does not want to have any more steroid injections. 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 Review of Systems Const All systems reviewed & are unremarkable except as noted in HPI and below Physical Exam Vital Signs: BMI result Body Mass Index 22.6 Const General: cooperative, healthy appearing and no acute distress Orientation/consciousness: patient oriented x3 HEENT Head: Yes normocephalic and Yes atraumatic Eyes EOM: EOMs intact bilaterally Resp Effort & Inspection: normal respiratory effort and able to speak in complete sentences Cardio Jugular venous distension: no JVD Skin General skin exam: turgor normal Rashes: no rashes Neuro General: patient oriented x3 Extrem Other: Evaluation of Right Upper Extremity: The patient is alert, oriented, and in no acute distress Neuro: Median, Ulnar, Radial nerves motor and sensory intact and sensation is normal to the tips of all digits Vascular: Cap refill brisk ROM: She can make a tight fist with good active flexion & extension of all digits No locking or catching. She has some radial deviation at the small finger DIP joints bilaterally, clinodactyly Some generalized discomfort in the hand & small finger Mild tenderness over the small finger D IP joint, but also tender over the middle phalanx, the PIP joint, the A1 lety of the small finger, and generally throughout the small finger and other aspects of her hand. No locking or catching of the small finger. Skin: No lacerations or abrasions. General: No Ecchymosis. No Erythema or evidence of infection. Radiographs: 3 views of the right hand, with attention to the small finger, were taken and viewed by me today in clinic. They show no fractures or dislocations. She has Clinodactyly of the small finger DIP joint with radial deviation and some early arthritic changes in this D IP joint and also the middle finger D IP joint Psych Appearance: grossly normal Affect: normal affect Attitude: cooperative Assessment & Plan Assessment & Plan (1) Congenital clinodactyly of right little finger: Code(s): Q74.0 - Other congenital malformations of upper limb(s), including shoulder girdle (2) Congenital clinodactyly of left little finger: Code(s): Q74.0 - Other congenital malformations of upper limb(s), including shoulder girdle (3) History of bilateral carpal tunnel release: Code(s): Z98.890 - Other specified postprocedural states Plan Assessment & Plan: 1. Bilateral small finger DIP joint Clinodactyly Present since 2. Right small finger DIP joint osteoarthritis, mild With more generalized rather than focal discomfort I educated her about these conditions I had a long discussion with her concerning a possible DIP joint level arthrodesis. She may benefit from surgery in the future. At this time, given her current symptoms, I do not recommend surgery, and I recommend activity modification. She should work on ROM exercises at home, and be mindful to limit or avoid any activities which cause her pain She can follow up prn 3. Patient History of bilateral carpal tunnel releases In ~2013 at an outside clinic 4. The patient History of bilateral cubital tunnel release In ~2013 at an outside clinic She reports having occasional numbness in her fingers bilaterally, but this has improved since her surgeries. Please note that greater than 30 minutes was spent with this patient going over the history, evaluating the patient and radiographs, formulating possible treatment options, discussing them with the patient, and documenting the visit. Scribed for Maya Chun MD by Homer Hardin, medical surgery nurse, on 01/12/24 at 2:55 PM, EST. Orders: Orders XR hand RT min 3V Today M79.641 - Pain in right hand Coding Level of Care Code New Pt Level 4 (00064) Diagnoses Congenital clinodactyly of right little finger Q74.0 Congenital clinodactyly of left little finger Q74.0 History of bilateral carpal tunnel release Z98.890
[2024-01-12 14:28] VITALS: BMI 22.6
== END 2024-01-12 15:24 | disposition home or self-care (01) ==
PROVIDERS: PCP Pediatrics; Visit Provider Orthopaedic Surgery
DX: Q74.0 Other congenital malformations of upper limb(s), including shoulder girdle (principal); Z98.890 Other specified postprocedural states
CPT/HCPCS: 99204

== ENCOUNTER 2024-01-12 14:22 | Outpatient (REF) | payer MEDICARE, MEDICAID, SELFPAY ==
--- NOTE | ~2024-01-12 | XR_ITS ---
EXAMINATION: XR HAND, RIGHT CLINICAL INFORMATION: Pain. COMPARISON: None available. TECHNIQUE: PA, lateral, and oblique views of the right hand. FINDINGS: Bony alignment and mineralization are normal. There is a mild ulnar minus variance. No fracture or dislocation is seen. There is mild osteoarthritic change of the second, third and fifth distal interphalangeal joints. There is no abnormal bone erosion. The proximal and distal carpal rows are intact. No focal soft tissue swelling, gas or foreign body is seen. XR/XR hand RT min 3V IMPRESSION: There is mild osteoarthritic change of the second, third and fifth distal interphalangeal joints. No fracture or dislocation is seen. There is no abnormal bone erosion.
== END 2024-01-12 14:23 | disposition home or self-care (01) ==
LOC: HO.HOSX 14:22
PROVIDERS: PCP Pediatrics; Visit Provider Orthopaedic Surgery
DX: M79.641 Pain in right hand (principal); Q74.0 Other congenital malformations of upper limb(s), including shoulder girdle; Z98.890 Other specified postprocedural states
CPT/HCPCS: 73130; 99202

== ENCOUNTER 2024-03-10 15:26 | Outpatient (AMB) | payer MEDICARE, MEDICAID, SELFPAY ==
[2024-03-10 15:26] VITALS: BMI 22.6
--- NOTE | 2024-03-10 15:26 | MHC.OFFVIS ---
Vital Signs 03/10/24 15:26 Height 4 ft 11 in Weight 112 lb BMI 22.6 Intake Visit Reasons: OV- LT SHLD 08/28/23DR Intake Note: Dory is a 58 year old female who presents for a follow up after her Left shoulder on 08/28/2023 and right shoulder arthroscopic surgery in September of 2022. She reports mild to moderate discomfort in both of her shoulders. The patient states that she has fallen down 2 sets of stairs over the last few months. She denies any weakness. She wishes to hold off on further cortisone injection therapy because of a recent reaction to an injection. She continues with her home stretching program. Allergies ibuprofen Allergy (Intermediate, Verified 03/10/24 15:29) rash, itchey acetaminophen [Vicodin] Allergy (Unknown, Verified 03/10/24 15:29) rash cephalexin [Keflex] Allergy (Unknown, Verified 03/10/24 15:29) itching fentanyl Allergy (Unknown, Verified 03/10/24 15:29) rash hydrocodone [Vicodin] Allergy (Unknown, Verified 03/10/24 15:29) rash hydromorphone [Dilaudid] Allergy (Unknown, Verified 03/10/24 15:29) rash hydroxyzine [Vistaril] Allergy (Unknown, Verified 03/10/24 15:29) uremic pruritis oxycodone Allergy (Unknown, Verified 03/10/24 15:29) rash,itchy,hives bee stings Allergy (Unknown, Uncoded 03/10/24 15:29) rash/swelling Benadryl Allergy (Unknown, Uncoded 03/10/24 15:29) rash codeine Allergy (Unknown, Uncoded 03/10/24 15:29) rash,itchy,hive gluten Allergy (Unknown, Uncoded 03/10/24 15:29) Unknown Lactose Allergy (Unknown, Uncoded 03/10/24 15:29) GI latex Allergy (Unknown, Uncoded 03/10/24 15:29) rash,itchiness morphine Allergy (Unknown, Uncoded 03/10/24 15:29) itchy shellfish Allergy (Unknown, Uncoded 03/10/24 15:29) rash,itchiness ZyrTEC Allergy (Unknown, Uncoded 03/10/24 15:29) itchy Medication List - Last Reconciled 03/11/24 by Jimmie Bloom MD citalopram 40 mg PO DAILY citalopram 20 mg PO DAILY clonazepam 0.5 mg PO TID PRN epinephrine IM methylprednisolone (Medrol (To)) PO PER PKG DIR ondansetron HCl 4 mg PO DAILY PRN quetiapine 100 mg PO DAILY solifenacin 5 mg PO DAILY tizanidine 2 mg PO Q12H PRN PFSH Medical History High cholesterol Cervico-occipital neuralgia Pituitary adenoma GERD (gastroesophageal reflux disease) PTSD (post-traumatic stress disorder) Anxiety ADHD Insomnia Bipolar depression Surgical History Hx of carpal tunnel repair History of shoulder surgery Social History Alcohol intake: never Patient Tobacco Use Status: Never used Tobacco Second Hand Smoke Exposure: No Current occupational status: unemployed and disabled 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 Physical Exam Vital Signs: BMI result Body Mass Index 22.6 Const Other: Well-nourished well-developed very friendly female awake alert and oriented x3 in no acute distress Extrem Other: Bilateral upper extremity examination shows good capillary refill, no skin lesions noted, normal sensation light touch Bilateral shoulder examination shows mild discomfort with range of motion, 5/5 strength with supraspinatus testing, no tenderness over her acromioclavicular joint, no instability Assessment & Plan Assessment & Plan (1) Left shoulder pain: Code(s): M25.512 - Pain in left shoulder Category: Medical (2) Right shoulder pain: Code(s): M25.511 - Pain in right shoulder Category: Medical Plan Ms. Yarbrough presents with bilateral shoulder discomfort most likely due to rotator cuff tendinosis. I had a lengthy discussion with the patient regarding treatment options. She will continue with her home exercise program and activity modifications. I did give her a prescription for a Medrol Dosepak. She will contact me prior to her follow-up appointment in 2-3 months should any questions or concerns arise. Feel free to call me at any time should questions regarding her orthopedic management arise. I spent 21 minutes in reviewing the patient's records and imaging studies, seeing the patient and documenting in the medical record. Medications: New methylprednisolone (Medrol (To)) PO PER PKG DIR 21 ea 0RF Coding Level of Care Code Est Pt Level 3 (21114) Diagnoses Left shoulder pain M25.512 Right shoulder pain M25.511
== END 2024-03-10 16:17 | disposition home or self-care (01) ==
PROVIDERS: PCP Pediatrics; Visit Provider Orthopaedic Surgery
DX: M25.512 Pain in left shoulder (principal); M25.511 Pain in right shoulder
CPT/HCPCS: 99213

== ENCOUNTER → 2024-03-10 15:26 | Outpatient (BNVA) | payer MEDICARE, MEDICAID, SELFPAY | PROVIDERS: PCP Pediatrics; Visit Provider Orthopaedic Surgery | DX: M25.512 Pain in left shoulder (principal); M25.511 Pain in right shoulder | CPT/HCPCS: 99212 ==

== ENCOUNTER 2024-04-07 09:24 | Outpatient (AMB) | payer MEDICARE, MEDICAID, SELFPAY ==
--- NOTE | 2024-04-07 09:24 | A.OFFVIS_ITS ---
Vital Signs 04/07/24 09:25 Height 4 ft 11 in Weight 112 lb BMI 22.6 Intake Visit Reasons: Newprob-B/L knee pain Intake Note: Ms. Yarbrough presents with complaints of progressively worsening bilateral knee pains and giving way, right greater than left. The patient states that her symptoms have gotten worse over the last year in spite of continued non operative treatments. She has failed the last 6 weeks of conservative treatment. She has had injections in the past which gave her no relief. She has also done a home exercise program for the last few months which aggravated her pain. She has tried Tylenol and anti-inflammatory medicines which gave her minimal relief. The patient states that her right knee will give out several times per day. Allergies ibuprofen Allergy (Intermediate, Verified 04/07/24:) rash, itchey acetaminophen [Vicodin] Allergy (Unknown, Verified 04/07/24:) rash cephalexin [Keflex] Allergy (Unknown, Verified 04/07/24 09:) itching fentanyl Allergy (Unknown, Verified 04/07/24:) rash hydrocodone [Vicodin] Allergy (Unknown, Verified 04/07/24 09:) rash hydromorphone [Dilaudid] Allergy (Unknown, Verified 04/07/24 09:) rash hydroxyzine [Vistaril] Allergy (Unknown, Verified 04/07/24:) uremic pruritis oxycodone Allergy (Unknown, Verified 04/07/24:) rash,itchy,hives bee stings Allergy (Unknown, Uncoded 04/07/24 09:) rash/swelling Benadryl Allergy (Unknown, Uncoded 04/07/24 09:) rash codeine Allergy (Unknown, Uncoded 04/07/24 09:) rash,itchy,hive gluten Allergy (Unknown, Uncoded 04/07/24 09:26) Unknown Lactose Allergy (Unknown, Uncoded 04/07/24 09:26) GI latex Allergy (Unknown, Uncoded 04/07/24 09:26) rash,itchiness morphine Allergy (Unknown, Uncoded 04/07/24 09:26) itchy shellfish Allergy (Unknown, Uncoded 04/07/24 09:26) rash,itchiness ZyrTEC Allergy (Unknown, Uncoded 04/07/24 09:26) itchy Medication List - Last Reconciled 04/08/24 by Jimmie Bloom MD citalopram 40 mg PO DAILY citalopram 20 mg PO DAILY clonazepam 0.5 mg PO TID PRN epinephrine IM linaclotide (Linzess) 72 mcg PO DAILY methylprednisolone (Medrol (To)) PO PER PKG DIR ondansetron HCl 4 mg PO DAILY PRN plecanatide (Trulance) 3 mg PO DAILY quetiapine 100 mg PO DAILY solifenacin 5 mg PO DAILY tizanidine 2 mg PO Q12H PRN PFSH Medical History High cholesterol Cervico-occipital neuralgia Pituitary adenoma GERD (gastroesophageal reflux disease) PTSD (post-traumatic stress disorder) Anxiety ADHD Insomnia Bipolar depression Surgical History Hx of carpal tunnel repair History of shoulder surgery Social History Alcohol intake: never Patient Tobacco Use Status: Never used Tobacco Second Hand Smoke Exposure: No Current occupational status: unemployed and disabled 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 Physical Exam Vital Signs: BMI result Body Mass Index 22.6 Const Other: Well-nourished well-developed very friendly female awake alert and oriented x3 in no acute distress Extrem Other: Bilateral lower extremity examination shows good capillary refill, no skin lesions noted, normal sensation light touch Bilateral knee examination shows a minimal effusion, minimal crepitus with range of motion, tenderness along her medial joint line, positive Aracelis's test, no instability Results Reviewed Results Reviewed: Standing full weight-bearing x-rays of the patient's bilateral knee show minimal joint space narrowing, no acute bony abnormalities Assessment & Plan Assessment & Plan (1) Right knee pain: Code(s): M25.561 - Pain in right knee Category: Medical (2) Left knee pain: Code(s): M25.562 - Pain in left knee Category: Medical Plan Ms. Yarbrough presents with bilateral knee pains and instability, right greater than left, most likely due to tearing of her medial menisci. Thus, I will send the patient for an MRI of her right knee for further evaluation. I will see her b ack once the MRI is completed to discuss the findings and treatment options. Feel free to call me at any time should questions regarding her orthopedic management arise. I spent 22 minutes in reviewing the patient's records and imaging studies, seeing the patient and documenting in the medical record. Orders: Orders XR knee LT 3V 04/07/24 M25.562 - Pain in left knee XR knee RT 3V 04/07/24 M25.561 - Pain in right knee MR knee RT wo con 04/07/24 S83.241A - Other tear of medial meniscus, current injury, right knee, initial encounter Coding Level of Care Code Est Pt Level 3 (11060) Diagnoses Right knee pain M25.561 Left knee pain M25.562
[2024-04-07 09:25] VITALS: BMI 22.6
== END 2024-04-07 10:16 | disposition home or self-care (01) ==
LOC: HO.HOS 09:24
PROVIDERS: PCP Pediatrics; Visit Provider Orthopaedic Surgery
DX: M25.561 Pain in right knee (principal); M25.562 Pain in left knee
CPT/HCPCS: 99213

== ENCOUNTER 2024-04-07 10:05 | Outpatient (REF) | payer MEDICARE, MEDICAID, SELFPAY ==
--- NOTE | ~2024-04-07 | XR_ITS ---
Exam: X-rays bilateral knees CLINICAL INDICATION: Pain in knees COMPARISON: None TECHNIQUE: 3 views of each knee FINDINGS: Right knee: No significant joint effusion. Mild narrowing of the medial compartment. Alignment is maintained. Left knee: Minimal narrowing of the medial compartment. No significant joint effusion alignment maintained. Alignment maintained XR/XR knee RT 3V IMPRESSION: Mild narrowing of the medial compartments bilaterally.
--- NOTE | ~2024-04-07 | XR_ITS ---
Exam: X-rays bilateral knees CLINICAL INDICATION: Pain in knees COMPARISON: None TECHNIQUE: 3 views of each knee FINDINGS: Right knee: No significant joint effusion. Mild narrowing of the medial compartment. Alignment is maintained. Left knee: Minimal narrowing of the medial compartment. No significant joint effusion alignment maintained. Alignment maintained XR/XR knee LT 3V IMPRESSION: Mild narrowing of the medial compartments bilaterally.
== END 2024-04-07 10:06 | disposition home or self-care (01) ==
LOC: HO.HOSX 10:05
PROVIDERS: Visit Provider Orthopaedic Surgery
DX: M25.561 Pain in right knee (principal); M25.562 Pain in left knee
CPT/HCPCS: 73562; 99212

== ENCOUNTER 2025-01-18 11:01 | Outpatient (AMB) | payer MEDICARE, MEDICAID, SELFPAY ==
--- NOTE | 2025-01-18 11:05 | A.OFFVIS_ITS ---
Vital Signs 01/18/25 11:11 Height 4 ft 11 in Weight 112 lb BMI 22.6 Handedness Right Intake Visit Reasons: Left shoulder pain and weakness Intake Note: Dory is a 59 year old female who presents with complaints of progressively worsening bilateral shoulder pains and weakness, left greater than right. The patient did undergo left shoulder arthroscopic surgery on 08/21/2023. She did fairly well initially for following that surgery. She states that she re- injured her shoulder approximately 1 year ago while lifting a heavy object. Since that time she has had weakness when lifting her left hand above shoulder height. She has failed the last 6 weeks of conservative treatment which has included Tylenol, anti-inflammatory medicines, a home exercise program and physical therapy exercises. She denies any numbness or tingling in either of her upper extremities. She has had cortisone injections in the past which gave her minimal relief. Allergies ibuprofen Allergy (Intermediate, Verified 01/18/25 11:10) rash, itchey acetaminophen [Vicodin] Allergy (Unknown, Verified 01/18/25 11:10) rash cephalexin [Keflex] Allergy (Unknown, Verified 01/18/25 11:10) itching fentanyl Allergy (Unknown, Verified 01/18/25 11:10) rash hydrocodone [Vicodin] Allergy (Unknown, Verified 01/18/25 11:10) rash hydromorphone [Dilaudid] Allergy (Unknown, Verified 01/18/25 11:10) rash hydroxyzine [Vistaril] Allergy (Unknown, Verified 01/18/25 11:10) uremic pruritis oxycodone Allergy (Unknown, Verified 01/18/25 11:10) rash,itchy,hives bee stings Allergy (Unknown, Uncoded 04/07/24 09:26) rash/swelling Benadryl Allergy (Unknown, Uncoded 04/07/24 09:26) rash codeine Allergy (Unknown, Uncoded 04/07/24 09:26) rash,itchy,hive gluten Allergy (Unknown, Uncoded 04/07/24 09:26) Unknown Lactose Allergy (Unknown, Uncoded 04/07/24 09:26) GI latex Allergy (Unknown, Uncoded 04/07/24 09:26) rash,itchiness morphine Allergy (Unknown, Uncoded 04/07/24 09:26) itchy shellfish Allergy (Unknown, Uncoded 04/07/24 09:26) rash,itchiness ZyrTEC Allergy (Unknown, Uncoded 04/07/24 09:26) itchy Medication List - Last Reconciled 01/18/25 by Jimmie Bloom MD citalopram 40 mg PO DAILY citalopram 20 mg PO DAILY clonazepam 0.5 mg PO TID PRN epinephrine IM linaclotide (Linzess) 72 mcg PO DAILY methylprednisolone (Medrol (To)) PO PER PKG DIR ondansetron HCl 4 mg PO DAILY PRN plecanatide (Trulance) 3 mg PO DAILY quetiapine 100 mg PO DAILY solifenacin 5 mg PO DAILY tizanidine 2 mg PO Q12H PRN PFSH Medical History High cholesterol Cervico-occipital neuralgia Pituitary adenoma GERD (gastroesophageal reflux disease) PTSD (post-traumatic stress disorder) Anxiety ADHD Insomnia Bipolar depression Surgical History Hx of carpal tunnel repair History of shoulder surgery Social History (Updated 01/18/25 @ 11:12 by Max Gil) Alcohol intake: never Patient Tobacco Use Status: Never used Tobacco Second Hand Smoke Exposure: No Current occupational status: unemployed and disabled 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 Physical Exam Vital Signs: BMI result Body Mass Index 22.6 Const Other: Well-nourished well-developed very friendly female awake alert and oriented x3 in no acute distress Extrem Other: Bilateral upper extremity examination shows good capillary refill, no skin lesions noted, normal sensation light touch Left shoulder examination shows decreased range of motion when compared to her right shoulder, 4+ out of 5 strength with supraspinatus testing, positive impingement signs, no instability Assessment & Plan Assessment & Plan (1) Rotator cuff insufficiency of left shoulder: Code(s): M25.312 - Other instability, left shoulder Category: Medical Plan Ms. Yarbrough presents with left shoulder pain and weakness due to impingement syndrome and possible rotator cuff tearing. Thus, I will send the patient for an MRI of her left shoulder for further evaluation. I will see her back once the MRI is completed to discuss the findings and treatment options. Feel free to call me at any time should questions regarding her orthopedic management arise. I spent 20 minutes in reviewing the patient's records and imaging studies, seeing the patient and documenting in the medical record. Orders: Orders MR shoulder LT wo con Today M25.312 - Other instability, left shoulder Coding Level of Care Code Est Pt Level 3 (67819) Complex EM visit Add On G2211 Diagnoses Rotator cuff insufficiency of left shoulder M25.312
[2025-01-18 11:11] VITALS: BMI 22.6
== END 2025-01-18 11:35 | disposition home or self-care (01) ==
LOC: HO.HOS 11:02
PROVIDERS: PCP Pediatrics; Visit Provider Orthopaedic Surgery
DX: M25.312 Other instability, left shoulder (principal)
CPT/HCPCS: 99213; G2211

== ENCOUNTER → 2025-01-18 11:01 | Outpatient (BNVA) | payer MEDICARE, MEDICAID, SELFPAY | PROVIDERS: PCP Pediatrics; Visit Provider Orthopaedic Surgery | DX: M25.312 Other instability, left shoulder (principal) | CPT/HCPCS: 99212 ==

== ENCOUNTER 2025-02-17 10:28 | Outpatient (REF) | payer MEDICARE, MEDICAID, SELFPAY ==
--- NOTE | ~2025-02-17 | MR_ITS ---
EXAMINATION: MR SHOULDER, LEFT CLINICAL INFORMATION: Other instability, left shoulder. Left shoulder pain and decreased range of motion. COMPARISON: MR left shoulder 01/27/2023 [facility]. TECHNIQUE: Multiplanar multisequence MR imaging of the left shoulder was done without IV contrast. Examination performed on a 1.5 Marifer Siemens unit utilizing standard sequences. FINDINGS: Rotator Cuff and Biceps Tendon: Supraspinatus: Suspected undersurface tear within the critical zone of the tendon, approximately 50% to 60% tendinous width, measuring 11 mm in transverse by 11 mm in AP diameter (series 9, image 15; series 6, image 19). There is associated thickening and hyperintensity of the tendon consistent with tendinopathy. Normal muscle belly. Infraspinatus: There is no discrete tear identified. There is mild hyperintensity of the distal fibers of the tendon, especially near the insertional aspect, consistent with tendinopathy. Normal muscle belly. Subscapularis: Mild tendinopathy in the superior insertional fibers, however there is no discrete tear identified. Teres Minor: Intact and normal in signal. Normal-appearing muscle belly. Biceps Long Head: Normally located within the bicipital groove. The tendon within the rotator interval demonstrates linear intrasubstance signal suggestive of delamination type tearing. The anchor appears intact. AC Joint and Acromiohumeral Arch: Widening of the AC joint is likely postoperative in nature. There is severe joint capsular distention and spurring. There is no residual undersurface spurring identified. There is a type IV acromion. No significant undersurface spurring. Glenohumeral Joint and Labrum: There is normal joint fluid. There is normal glenohumeral joint alignment. There are no humeral full-thickness cartilaginous abnormalities although there is mild inferior articular thinning and eburnation. The glenoid cartilage demonstrates tiny foci of subchondral bone plate edema with cartilage fissuring in the anterior 6:00 axis (series 9, image 12; series 5, image 17). There is otherwise mild thinning in the urination of the glenoid cartilage without additional full-thickness defect. The glenoid labrum demonstrates no displaced tear identified. Osseous Structures: No additional regions of abnormal bone marrow signal, edema, or abnormal infiltrating signal. Spino-glenoid Notch: Normal. Quadrilateral Space: Normal. Other: The glenohumeral ligaments appear intact without significant thickening. There is moderate fluid signal in the subacromial/subdeltoid bursa consistent with bursitis. MR/MR shoulder LT wo con IMPRESSION: 1. There is a suspected 60% undersurface tear of the supraspinatus tendon within the critical zone. There is associated insertional tendinopathy. There is no full-thickness tear or tendinous retraction. 2. Mild tendinopathy of the undersurface of the infraspinatus tendon which is otherwise intact. 3. Minimal insertional tendinopathy of the subscapularis tendon, which is otherwise intact. 4. Delamination type tear of the long head of the biceps tendon within the rotator interval. 5. Mild degenerative arthritis of the glenohumeral joint with a solitary focus of cartilaginous fissuring and subchondral bone plate edema at the 6:00 axis of the glenoid. 7. Postoperative changes of the AC joint without residual undersurface spurring. Type IV acromion. No undersurface spurring. 8. The labrum appears grossly intact without displaced tear. 9. Moderate subacromial/subdeltoid bursitis. Electronically signed by: Chauncey Montemayor MD 02/20/2025 08:47 AM EDT
== END 2025-02-17 10:29 | disposition home or self-care (01) ==
LOC: HO.MRI 10:28
PROVIDERS: PCP Pediatrics; Visit Provider Orthopaedic Surgery
DX: M25.312 Other instability, left shoulder (principal)
CPT/HCPCS: 73221

== ENCOUNTER → 2025-02-17 10:28 | Outpatient (BNV) | payer MEDICARE, MEDICAID, SELFPAY | PROVIDERS: PCP Pediatrics; Visit Provider Radiology Diagnostic Radiology | DX: M25.512 Pain in left shoulder (principal) | CPT/HCPCS: 73221 ==

== ENCOUNTER 2025-03-08 11:06 | Outpatient (AMB) | payer MEDICARE, MEDICAID, SELFPAY ==
--- NOTE | 2025-03-08 11:07 | A.OFFVIS_ITS ---
Intake Visit Reasons: Tele- Left shoulder MRI review Intake Note: Dory is a 59 year old female who presents with complaints of progressively worsening bilateral shoulder pains and weakness, left greater than right. The patient did undergo left shoulder arthroscopic surgery on 08/21/2023. She did fairly well initially for following that surgery. She states that she re- injured her shoulder approximately 1 year ago while lifting a heavy object. Since that time she has had weakness when lifting her left hand above shoulder height. She has failed the last 6 weeks of conservative treatment which has included Tylenol, anti-inflammatory medicines, a home exercise program and physical therapy exercises. She denies any numbness or tingling in either of her upper extremities. She has had cortisone injections in the past which gave her minimal relief. Allergies ibuprofen Allergy (Intermediate, Verified 03/08/25 11:07) rash, itchey acetaminophen [Vicodin] Allergy (Unknown, Verified 03/08/25 11:07) rash cephalexin [Keflex] Allergy (Unknown, Verified 03/08/25 11:07) itching fentanyl Allergy (Unknown, Verified 03/08/25 11:07) rash hydrocodone [Vicodin] Allergy (Unknown, Verified 03/08/25 11:07) rash hydromorphone [Dilaudid] Allergy (Unknown, Verified 03/08/25 11:07) rash hydroxyzine [Vistaril] Allergy (Unknown, Verified 03/08/25 11:07) uremic pruritis oxycodone Allergy (Unknown, Verified 03/08/25 11:07) rash,itchy,hives bee stings Allergy (Unknown, Uncoded 03/08/25 11:07) rash/swelling Benadryl Allergy (Unknown, Uncoded 03/08/25 11:07) rash codeine Allergy (Unknown, Uncoded 03/08/25 11:07) rash,itchy,hive gluten Allergy (Unknown, Uncoded 03/08/25 11:07) Unknown Lactose Allergy (Unknown, Uncoded 03/08/25 11:07) GI latex Allergy (Unknown, Uncoded 03/08/25 11:07) rash,itchiness morphine Allergy (Unknown, Uncoded 03/08/25 11:07) itchy shellfish Allergy (Unknown, Uncoded 03/08/25 11:07) rash,itchiness ZyrTEC Allergy (Unknown, Uncoded 03/08/25 11:07) itchy Medication List - Last Reconciled 03/08/25 by Jimmie Bloom MD citalopram 40 mg PO DAILY citalopram 20 mg PO DAILY clonazepam 0.5 mg PO TID PRN epinephrine IM linaclotide (Linzess) 72 mcg PO DAILY methylprednisolone (Medrol (To)) PO PER PKG DIR ondansetron HCl 4 mg PO DAILY PRN plecanatide (Trulance) 3 mg PO DAILY quetiapine 100 mg PO DAILY solifenacin 5 mg PO DAILY tizanidine 2 mg PO Q12H PRN PFSH Medical History High cholesterol Cervico-occipital neuralgia Pituitary adenoma GERD (gastroesophageal reflux disease) PTSD (post-traumatic stress disorder) Anxiety ADHD Insomnia Bipolar depression Surgical History Hx of carpal tunnel repair History of shoulder surgery Social History (Updated 01/18/25 @ 11:12 by Max Gil) Alcohol intake: never Patient Tobacco Use Status: Never used Tobacco Second Hand Smoke Exposure: No Current occupational status: unemployed and disabled 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 Physical Exam Const Other: No physical exam today because of telemedicine appointment Telehealth Telehealth Telehealth Platform: Telephone Location of provider rendering services: practice address Location of patient: address on file Patient Identification confirmed using: Name, : Yes Telehealth method: voice only Patient verbally consented to treatment: Yes Patient verbally consented to billing insurance company: Yes Patient informed of any privacy concerns related to visit: Yes Minutes spent on Phone/Video with Pt.: 12 Results Reviewed Results Reviewed: MRI of the patient's left shoulder shows bony changes consistent with distal clavicle excision and acromioplasty, signal change within the supraspinatus tendon most likely due to partial-thickness rotator cuff tearing, no full- thickness tear noted Assessment & Plan Assessment & Plan (1) Left shoulder pain: Code(s): M25.512 - Pain in left shoulder Category: Medical Plan Ms. Yarbrough presents with intermittent left shoulder pain due to impingement syndrome as well as rotator cuff tendinosis versus a partial-thickness tear. I had a lengthy discussion with the patient regarding the treatment options. She wishes to hold off on surgery if at all possible. I agree with this plan. I did give her a prescription for a Medrol Dosepak. She will follow up with me on an as-needed basis should her symptoms not plateau at an unacceptable level over the next few months. Feel free to call me at any time should questions regarding her orthopedic management arise. Medications: New methylprednisolone (Medrol (To)) PO PER PKG DIR 21 ea 0RF Coding Level of Care Code Tele Est Pt Level 2 (44135) Complex EM visit Add On G2211 Diagnoses Left shoulder pain M25.512
== END 2025-03-08 11:13 | disposition home or self-care (01) ==
LOC: HO.HOS 11:06
PROVIDERS: PCP Pediatrics; Visit Provider Orthopaedic Surgery
DX: M25.512 Pain in left shoulder (principal)
CPT/HCPCS: 99212; G2211

== ENCOUNTER → 2025-03-08 11:06 | Outpatient (BNVA) | payer MEDICARE, MEDICAID, SELFPAY | PROVIDERS: PCP Pediatrics; Visit Provider Orthopaedic Surgery | DX: Z13.89 Encounter for screening for other disorder (principal) ==

== ENCOUNTER 2025-07-04 08:33 | Outpatient (REF) | payer MEDICARE, MEDICAID, SELFPAY ==
--- NOTE | ~2025-07-04 | XR_ITS ---
CLINICAL HISTORY: bilateral knee pain 3 views right knee Comparison: DX/SR - XR KNEE 3 VIEWS LEFT - 04/07/24 09:45 EDT DX/SR - XR KNEE 3 VIEWS RIGHT - 04/07/24 09:45 EDT Findings: No fractures, subluxations or dislocations. Mild joint space narrowing medial knee compartment has slightly progressed No osteochondral lesions or loose bodies. Normal patellar alignment. No suprapatellar joint effusion.No prepatellar soft tissue swelling. Normal bone mineralization and soft tissues. No unusual radiopaque foreign body. Impression: 1. Slight progression of the mild joint space narrowing medial knee compartment on the right 3 views left knee Comparison: DX/SR - XR KNEE 3 VIEWS LEFT - 04/07/24 09:45 EDT DX/SR - XR KNEE 3 VIEWS RIGHT - 04/07/24 09:45 EDT Findings: No fractures, subluxations or dislocations. Mild joint space narrowing medial knee compartment slightly progressed No osteochondral lesions or loose bodies. Normal patellar alignment. No suprapatellar joint effusion.No prepatellar soft tissue swelling. Normal bone mineralization and soft tissues. No unusual radiopaque foreign body. Impression: 1. Slight progression of the mild joint space narrowing medial knee compartment on the left This document has been electronically signed by: Scar Xie MD on 07/05/2025 12:32:44
== END 2025-07-04 08:34 | disposition home or self-care (01) ==
LOC: HO.HOSX 08:33
PROVIDERS: Visit Provider Orthopaedic Surgery
DX: M25.562 Pain in left knee (principal); M25.561 Pain in right knee; Z79.899 Other long term (current) drug therapy
CPT/HCPCS: 73562; 99212

== ENCOUNTER 2025-07-04 09:43 | Outpatient (AMB) | payer MEDICARE, MEDICAID, SELFPAY ==
--- NOTE | 2025-07-04 09:57 | A.OFFVIS_ITS ---
Intake Visit Reasons: Bilateral knee pains Intake Note: Hitesh) is a 59 year old female who presents with complaints of intermittent discomfort in both of her knees. She denies any locking or giving way. She does take ibuprofen as needed for shoulder discomfort. Allergies ibuprofen Allergy (Intermediate, Verified 07/04/25 09:59) rash, itchey acetaminophen (Vicodin) Allergy (Unknown, Verified 07/04/25 09:59) rash cephalexin (Keflex) Allergy (Unknown, Verified 07/04/25 09:59) itching fentanyl Allergy (Unknown, Verified 07/04/25 09:59) rash hydrocodone (Vicodin) Allergy (Unknown, Verified 07/04/25 09:59) rash hydromorphone (Dilaudid) Allergy (Unknown, Verified 07/04/25 09:59) rash hydroxyzine (Vistaril) Allergy (Unknown, Verified 07/04/25 09:59) uremic pruritis oxycodone Allergy (Unknown, Verified 07/04/25 09:59) rash,itchy,hives bee stings Allergy (Unknown, Uncoded 03/08/25 11:07) rash/swelling Benadryl Allergy (Unknown, Uncoded 03/08/25 11:07) rash codeine Allergy (Unknown, Uncoded 03/08/25 11:07) rash,itchy,hive gluten Allergy (Unknown, Uncoded 03/08/25 11:07) Unknown Lactose Allergy (Unknown, Uncoded 03/08/25 11:07) GI latex Allergy (Unknown, Uncoded 03/08/25 11:07) rash,itchiness morphine Allergy (Unknown, Uncoded 03/08/25 11:07) itchy shellfish Allergy (Unknown, Uncoded 03/08/25 11:07) rash,itchiness ZyrTEC Allergy (Unknown, Uncoded 03/08/25 11:07) itchy Medication List - Last Reconciled 07/04/25 by Jimmie Bloom MD citalopram 40 mg PO DAILY citalopram 20 mg PO DAILY clonazepam 0.5 mg PO TID PRN epinephrine IM linaclotide (Linzess) 72 mcg PO DAILY methylprednisolone (Medrol (To)) PO PER PKG DIR methylprednisolone (Medrol (To)) PO PER PKG DIR ondansetron HCl 4 mg PO DAILY PRN plecanatide (Trulance) 3 mg PO DAILY quetiapine 100 mg PO DAILY solifenacin 5 mg PO DAILY tizanidine 2 mg PO Q12H PRN PFSH Medical History High cholesterol Cervico-occipital neuralgia Pituitary adenoma GERD (gastroesophageal reflux disease) PTSD (post-traumatic stress disorder) Anxiety ADHD Insomnia Bipolar depression Surgical History Hx of carpal tunnel repair History of shoulder surgery Social History (Updated 07/04/25 @ 10:00 by Layla Magaña) Alcohol intake: never Patient Tobacco Use Status: Never used Tobacco Second Hand Smoke Exposure: No Current occupational status: employed 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 Physical Exam Const Other: Well-nourished well-developed very friendly female awake alert and oriented x3 in no acute distress Extrem Other: Bilateral knee examination shows minimal effusions, mild crepitus with range of motion, positive Aracelis's test, no instability Results Reviewed Results Reviewed: Standing full weight-bearing x-rays of the patient's bilateral knee show mild diffuse joint space narrowing, no acute bony abnormalities Assessment & Plan Assessment & Plan (1) Left knee pain: Code(s): M25.562 - Pain in left knee Category: Medical (2) Right knee pain: Code(s): M25.561 - Pain in right knee Category: Medical Plan Rae presents with intermittent bilateral knee discomfort due to early degenerative joint disease as well as possible medial meniscus tearing. I had a lengthy discussion with the patient regarding the treatment options. At this point the patient's symptoms are tolerable to her. She will continue with her activity modifications. She will follow up with me on an as-needed basis should her symptoms worsen in any way. Feel free to call me at any time should questions regarding her orthopedic management arise. I spent 21 minutes in reviewing the patient's records and imaging studies, seeing the patient and documenting in the medical record. Orders: Orders XR Knee John 3V Today M25.561 - Pain in right knee, M25.562 - Pain in left knee Coding Level of Care Code Est Pt Level 3 (35997) Complex EM visit Add On G2211 Diagnoses Left knee pain M25.562 Right knee pain M25.561
== END 2025-07-04 10:18 | disposition home or self-care (01) ==
LOC: HO.HOS 09:44
PROVIDERS: PCP Pediatrics; Visit Provider Orthopaedic Surgery
DX: M25.562 Pain in left knee (principal); M25.561 Pain in right knee
CPT/HCPCS: 99213; G2211